=== PATIENT | male | born 1985 | race Caucasian/White ===

== ENCOUNTER 2018-06-26 08:25 | Emergency (ER) | payer OTHER | END 2018-06-26 09:49 | disposition home or self-care (01) | LOC: FTE 08:25 | DX: M25.531 Pain in right wrist (principal); R40.2412 Glasgow coma scale score 13-15, at arrival to emergency department; F17.210 Nicotine dependence, cigarettes, uncomplicated | CPT/HCPCS: 29125; 73110-RT; 99283-25 ==